=== PATIENT | male | born 1980 | race Hispanic/Latino ===

== ENCOUNTER 2024-03-05 08:13 | Emergency (ER) | payer OTHER, SELFPAY ==
[2024-03-05 08:13] VITALS: BMI 29.4
[2024-03-05 08:20] VITALS: BP 151/105
[2024-03-05 08:35] VITALS: BP 145/79
--- NOTE | 2024-03-05 08:56 | ED.GENMED ---
History of Present Illness
General
Chief Complaint: Chest Pain
Source: patient and family
Time Seen by Provider: 03/05/24 08:42
Travel History
Have you had any contact with someone who has COVID-19?: No
Do you have any symptoms of coronavirus? Fever > 100 degrees, chills, cough, shortness of breath, sore throat, loss of taste or smell, muscle aches, or headache?: No
History of Present Illness
History of Present Illness:
This patient is a 43-year-old male who admits to drinking alcohol last night. He woke up this morning felt 'hung over' described as a little shaky, associated with discomfort in the left anterior chest 'every time I breathe'. He got ready for
work, and as he was in the car with his daughter who was driving he started to feel very lightheaded, and seeing 'dots' like he might pass out. He therefore elected to come the emergency department. He feels much better now and no longer feels
lightheaded but still feels a little shaky and still has discomfort with deep breath. He denies recent immobilization, recent trauma, leg swelling, fever, chills, cough, sore throat, rhinorrhea, abdominal pain, numbness, tingling, focal weakness,
or other complaints. Patient denies family history of early cardiac illness. Patient denies personal or family history of clotting disorder.
Past History
Past History
ED Past Medical History: Asthma
ED Past Surgical History: None
Social History
Tobacco: Non-smoker
Alcohol: Occasional
Drug: None
Personal:
Living: with family
Employment: Employed
Phy Exam
Physical Exam
Physical Exam:
GENERAL: Alert , in no apparent distress but appears anxious
EYE: pupils equal and reactive
NECK: Supple, no significant adenopathy.
ENT: o/p clr, mm slightly dry
CARDIAC: Regular rate and rhythm .
LUNGS: Clear breath sounds bilaterally, no acute respiratory distress, no wheezes/rales/rhonchi
ABDOMEN: Soft, without focal tenderness, no r/g, no cvat
NEUROLOGICAL: Alert and oriented, no focal neuro deficits
SKIN: Warm and dry, skin intact.
MUSCULOSKELETAL: No edema, well perfused.
PSYCH: Normal and appropriate interaction but anxious.
Scores
PERC Rule Criteria
Age <50 years: Yes
HR <100 bpm: Yes
Room air oxygen sat >94%: Yes
History of DVT or PE: No
Recent trauma or surgery: No
Hemoptysis: No
Exogenous estrogen: No
Clinical signs suggestive of DVT: No
: No
Considered low risk for PE: Yes
PERC Score: 0
PE can be excluded by PERC: Yes
Course
Orders/Labs/Results
Orders:
Orders
03/05/24 08:14
Electrocardiogram (*1) Urgent
Reason for Study: Shortness of Breath
EKG- Treatment ONCE
03/05/24 08:56
Cardiac Monitoring- Treatment ONCE
0.9% Sodium Chloride 1000 ml [Nss] 1,000 ml IV BOLUS
CR Chest - 2 Views Urgent
Comment:
Reason For Exam: cp
03/05/24 09:15
Complete Blood Count/No Diff Urgent
Comprehensive Metabolic Panel Urgent
Troponin I Urgent
Abnormal Lab Results
03/05/24
09:15
WBC 4.5 L 10^3/uL
(4.8-10.8)
03/05/24 09:15
03/05/24 09:15
Vital Signs
Initial and Last Documented VS:
Initial Vital Signs
Temp Pulse Resp BP Pulse Ox
98.1 F 86 18 151/105 100
03/05/24 08:20 03/05/24 08:20 03/05/24 08:20 03/05/24 08:20 03/05/24 08:20
Last Documented Vital Signs
Temp Pulse Resp BP Pulse Ox
98.1 F 77 10 158/88 99
03/05/24 08:20 03/05/24 10:00 03/05/24 10:00 03/05/24 10:00 03/05/24 10:00
Update Note
Update Note:
Patient presents to the Emergency Department with __chest discomfort, lightheadedness, shakiness
Number and Complexity of Problems Addressed at the Encounter
� Chronic conditions affecting care:
� Acute Exacerbation and/or Progression of Chronic Illness:
� Differential Diagnosis includes: But not limited to dehydration, anxiety, ACS, PE, pneumothorax, etc.
Amount and/or Complexity of Data to be Reviewed and Analyzed
� I performed an independent evaluation of and my interpretation is:
EKG: Read by me, normal sinus rhythm, normal rate, no acute ischemia
CT:
Xrays:read by me (and rads) nad
Laboratory Studies:unremarkable
Other:
� Review of other/old records reveals:
� Clinical information was obtained by an independent historian: Daughter who is bedside
� Prescriptions/Medications Considered but not given:
� Further testing considered but not performed: Patient does not need a D-dimer or further workup for PE given that is PE RC score is negative.
Risk of Complications and/or Morbidity or Mortality of Patient Management
� Social determinants of health affecting care:
� Discussion with other providers (PCP, Hospitalists, Consultants, etc):
� Escalation of care including admission/observation vs risk of discharge considered: 10:23 AM patient feels much better, no complaints, vital stable. Will complete IV fluid infusion and discharge. Toradol administered for
likely musculoskeletal related discomfort.
ED Attending Note
-
Portions of this chart may have been created with voice recognition software.� Occasional wrong word or��sound alike� substitutions may have occurred due to the inherent limitations of voice recognition software.
Discharge Plan
Departure
Patient Disposition: Home (Routine Discharge)
Date of Disposition: 03/05/24
Time of Disposition: 10:23
Patient with high blood pressure during this ER visit?: Yes
Condition: Good
Discharge Problem:
Near syncope
Instructions: Near Fainting (DC), Chest Pain PCP Follow Up, BLOOD PRESSURE
Referrals:
Mary Kent CRNP [Family Provider] - Follow up in 2-3 days
Activity Restrictions/Additional Instructions:
IF YOU DEVELOP SEVERE HEADACHE, SHORTNESS OF BREATH, ABDOMINAL PAIN, VOMITING, TROUBLE BREATHING, WORSENING OR NEW CHEST PAIN, OR OTHER WORRISOME SIGNS, PLEASE RETURN TO THE ER IMMEDIATELY
Interventions
Interventions:
*Risk Screen - Suicide Last Done: 03/05/24 08:20
*General Assessment Last Done: 03/05/24 08:20
*Neglect/Abuse Screening Last Done: 03/05/24 08:20
ED- Cardiac Assessment Last Done: 03/05/24 10:12
Discharge Date and Time
Print Language: WOLOF
[2024-03-05 09:00] VITALS: BP 137/81
[2024-03-05] MEDS: NSS 1000 IV (09:17)
[2024-03-05 09:32] LABS: Hematocrit 43.7 % (39.0-52.0); Hemoglobin 15.1 g/dL (13.0-18.0); Mean Corp Hgb Conc. 34.6 g/dL (33.0-37.0); Mean Corpuscular Hgb 28.8 pg (27.0-31.0); Mean Corpuscular Volume 83.4 fL (80.0-94.0); Mean Platelet Volume 10.3 fL (7.4-10.4); Platelet Count 190 10^3/uL (130-400); Red Blood Cell Count 5.24 10^6/uL (4.70-6.10); Red Cell Dist. Width 13.4 % (11.5-14.5); White Blood Cell Count 4.5 10^3/uL (4.8-10.8)
[2024-03-05 09:46] LABS: ALT (SGPT) 16 U/L (0-50); AST (SGOT) 20 U/L (17-59); Albumin 4.6 g/dl (3.5-5.0); Alkaline Phosphatase 100 U/L (38-126); Blood Urea Nitrogen 17 mg/dl (9-20); Calcium 9.3 mg/dl (8.4-10.2); Carbon Dioxide 25 mmol/L (22-30); Chloride 105 mmol/L (98-107); Estimated Creatinine Clearance > 125 ml/min; Glucose 94 mg/dl (70-99); Potassium 3.9 mmol/L (3.5-5.1); Sodium 140 mmol/L (135-145); Total Bilirubin 0.4 mg/dl (0.2-1.3); Total Protein 7.5 g/dl (6.3-8.2); eGFR > 60.00
[2024-03-05 09:57] LABS: Troponin I < 0.012 ng/ml
[2024-03-05 10:00] VITALS: BP 158/88
[2024-03-05] MEDS: TORADOL 15 MG IV (10:58)
== END 2024-03-05 11:10 | disposition home or self-care (01) ==
LOC: EMR 08:13
PROVIDERS: EMERGENCY PHYSICIAN Emergency Medicine; FAMILY PHYSICIAN Nurse Practitioner Adult Health
DX: R07.89 Other chest pain (principal)
CPT/HCPCS: 99283; 96374; 96361; 71046; 80053; 84484; 85027; 93005

== ENCOUNTER 2024-03-21 11:08 | Emergency (ER) | payer OTHER, SELFPAY ==
[2024-03-21] VITALS (9 sets, daily range): BP systolic 119–133; BP diastolic 55–83; PULSE 62–84; BMI 31.1
[2024-03-21 11:28] LABS: % Eosinophils 7.3 % (0-6); % Immature Granulocytes 0.2 % (0-0.5); % Lymphocytes 37.9 % (20.5-51.1); % Monocytes 6.3 % (1.7-9.3); % Neutrophils 47.3 % (42.2-75.2); Absolute Eosinophils 0.3 10^3/uL (0-0.7); Absolute Lymphocytes 1.6 10^3/uL (1.2-3.4); Absolute Monocytes 0.3 10^3/uL (0.1-0.6); Hematocrit 39.4 % (39.0-52.0); Hemoglobin 14.1 g/dL (13.0-18.0); Mean Corp Hgb Conc. 35.8 g/dL (33.0-37.0); Mean Corpuscular Hgb 29.4 pg (27.0-31.0); Mean Corpuscular Volume 82.3 fL (80.0-94.0); Mean Platelet Volume 10.8 fL (7.4-10.4); Nucleated Red Blood Cells % 0 % (-); Platelet Count 194 10^3/uL (130-400); Red Blood Cell Count 4.79 10^6/uL (4.70-6.10); Red Cell Dist. Width 13.3 % (11.5-14.5); White Blood Cell Count 4.1 10^3/uL (4.8-10.8)
[2024-03-21 11:48] LABS: ALT (SGPT) 16 U/L (0-50); AST (SGOT) 22 U/L (17-59); Albumin 4.7 g/dl (3.5-5.0); Alkaline Phosphatase 87 U/L (38-126); Blood Urea Nitrogen 16 mg/dl (9-20); Calcium 9.5 mg/dl (8.4-10.2); Carbon Dioxide 20 mmol/L (22-30); Chloride 104 mmol/L (98-107); Estimated Creatinine Clearance > 125 ml/min; Glucose 110 mg/dl (70-99); Sodium 134 mmol/L (135-145); Total Bilirubin 0.7 mg/dl (0.2-1.3); Total Protein 7.5 g/dl (6.3-8.2); eGFR > 60.00
--- NOTE | 2024-03-21 12:08 | ED.GENMED ---
History of Present Illness
<Dion Cameron PA-C - Last Filed: 03/21/24 15:17>
General
Chief Complaint: Fainting Sensation
Source: patient
Exam Limitations: none
Time Seen by Provider: 03/21/24 11:46
History of Present Illness
History of Present Illness:
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 He developed lightheaded sensation. No chest pain.
No palpitations. He tries to stay hydrated throughout the day. No fevers. No other complaints at this time
Past History
<JUSTIN Duque Last Filed: 03/21/24 15:17>
Past History
ED Past Medical History: Asthma
ED Past Surgical History: None
Social History
Tobacco: Non-smoker
Alcohol: Occasional
Drug: None
Personal:
Living: with family
Employment: Employed
Phy Exam
<JUSTIN Duque Last Filed: 03/21/24 15:17>
Physical Exam
Physical Exam:
General: Well-appearing male no acute respiratory distress
HEENT: Normocephalic atraumatic
Heart: Regular rate and rhythm no murmurs
Lungs: Clear no wheeze or rales
Abdomen soft nontender nondistended no guarding or rebound normal bowel sounds
Extremities: No cyanosis
Course
<JUSTIN Duque Last Filed: 03/21/24 15:17>
Orders/Labs/Results
Orders:
Orders
03/21/24 11:20
Electrocardiogram (*1) Urgent
Reason for Study: Syncope
EKG- Treatment ONCE
CMP [Comprehensive Metabolic Panel] Urgent
Complete Blood Count/With Diff Urgent
Lyme Progressive Urgent
Comment: LYME PROGRESSIVE ADDED ON BY FLOOR 2:40PM 03-21-24
03/21/24 12:07
Orthostatic VS- Treatment ONCE
0.9% Sodium Chloride 1000 ml [Nss] 1,000 ml IV BOLUS
03/21/24 12:18
COVID-19 Antigen Urgent
Source: Nasal Swab
03/21/24 14:16
Ketorolac [Toradol] 30 mg IV NOW STA
03/21/24 14:38
Add On- LAB Urgent
Tests Added?: lyme progressive
03/21/24 15:18
Troponin I Urgent
Abnormal Lab Results
03/21/24
11:20
WBC 4.1 L 10^3/uL
(4.8-10.8)
MPV 10.8 H fL
(7.4-10.4)
Eosinophils % 7.3 H %
(0-6)
Sodium 134 L mmol/L
(135-145)
Carbon Dioxide 20 L mmol/L
(22-30)
Glucose 110 H mg/dl
(70-99)
03/21/24 11:20
03/21/24 11:20
Vital Signs
Initial and Last Documented VS:
Initial Vital Signs
Temp Pulse Resp BP Pulse Ox
97.8 F 68 12 129/77 99
03/21/24 11:12 03/21/24 11:12 03/21/24 11:12 03/21/24 11:12 03/21/24 11:12
Last Documented Vital Signs
Temp Pulse Resp BP Pulse Ox
97.8 F 71 16 133/73 97
03/21/24 11:12 03/21/24 15:45 03/21/24 15:00 03/21/24 15:00 03/21/24 15:45
<Tiffanyerasto Gamez, ELECTRONICS SUPERVISOR - Last Filed: 03/21/24 17:07>
Orders/Labs/Results
Orders:
Orders
03/21/24 11:20
Electrocardiogram (*1) Urgent
Reason for Study: Syncope
EKG- Treatment ONCE
CMP [Comprehensive Metabolic Panel] Urgent
Complete Blood Count/With Diff Urgent
Lyme Progressive Urgent
Comment: LYME PROGRESSIVE ADDED ON BY FLOOR 2:40PM 03-21-24
03/21/24 12:07
Orthostatic VS- Treatment ONCE
0.9% Sodium Chloride 1000 ml [Nss] 1,000 ml IV BOLUS
03/21/24 12:18
COVID-19 Antigen Urgent
Source: Nasal Swab
03/21/24 14:16
Ketorolac [Toradol] 30 mg IV NOW STA
03/21/24 14:38
Add On- LAB Urgent
Tests Added?: lyme progressive
03/21/24 15:18
Troponin I Urgent
Abnormal Lab Results
03/21/24
11:20
WBC 4.1 L 10^3/uL
(4.8-10.8)
MPV 10.8 H fL
(7.4-10.4)
Eosinophils % 7.3 H %
(0-6)
Sodium 134 L mmol/L
(135-145)
Carbon Dioxide 20 L mmol/L
(22-30)
Glucose 110 H mg/dl
(70-99)
03/21/24 11:20
03/21/24 11:20
Vital Signs
Initial and Last Documented VS:
Initial Vital Signs
Temp Pulse Resp BP Pulse Ox
97.8 F 68 12 129/77 99
03/21/24 11:12 03/21/24 11:12 03/21/24 11:12 03/21/24 11:12 03/21/24 11:12
Last Documented Vital Signs
Temp Pulse Resp BP Pulse Ox
97.8 F 71 16 133/73 97
03/21/24 11:12 03/21/24 15:45 03/21/24 15:00 03/21/24 15:00 03/21/24 15:45
<Dion Cameron PA-C - Last Filed: 03/21/24 15:17>
MDM/Problems Addressed
Differential Diagnosis Includes:
Lightheaded sensation. He was here 2 weeks ago for the same. EKG shows sinus rhythm without ischemic changes. Will check labs. Orthostatic vital signs pending.
<Tiffany Gamez, ELECTRONICS SUPERVISOR - Last Filed: 03/21/24 17:07>
MDM/Problems Addressed
MDM/Problems Addressed:
4:45 p.m.
Troponin normal.
Pt OOB and ambulating well, states he feels much better
Lyme titer pending
Stable for discharge, ambulated out with normal gait.
<Tiffany Gamez ELECTRONICS SUPERVISOR - Last Filed: 03/21/24 17:07>
*Critical Care Note
Total Time (30-74mins, 75-104mins- exclusive of procedures): Not Applicable
<Dion Cameron PA-C - Last Filed: 03/21/24 15:17>
Update Note
Update Note:
Patient feeling better after fluids. Slightly tachycardic upon standing with orthostatic vital signs. Troponin is pending. If negative anticipate discharge home but will recommend follow-up with cardiology recurrent near syncope and palpitations.
ED Attending Note
<Dion Cameron PA-C - Last Filed: 03/21/24 15:17>
-
Portions of this chart may have been created with voice recognition software.� Occasional wrong word or��sound alike� substitutions may have occurred due to the inherent limitations of voice recognition software.
Discharge Plan
Departure
Instructions: Near Fainting (DC)
Referrals:
Mary Kent CRNP [Family Provider] -
Nancy Fernandes MD [Active] -
Activity Restrictions/Additional Instructions:
Rest. Drink plenty of fluids. Please return here for worsening symptoms otherwise follow-up with cardiology
Interventions
Interventions:
*Risk Screen - Suicide Last Done: 03/21/24 11:19
*General Assessment Last Done: 03/21/24 11:19
*Neglect/Abuse Screening Last Done: 03/21/24 11:19
ED- Fall Risk Assessment Last Done: 03/21/24 11:53
*ED COVID-19 Vaccine History Last Done: 03/21/24 11:19
ED- Cardiac Assessment Last Done: 03/21/24 11:53
ED- Neurological Assessment Last Done: 03/21/24 11:53
Discharge Date and Time
Print Language: GRENADIAN
[2024-03-21] MEDS: NSS 1000 IV (12:22)
[2024-03-21 12:58] LABS: COVID-19 Antigen Negative (Negative)
[2024-03-21 15:50] LABS: Troponin I < 0.012 ng/ml
[2024-03-22 15:51] LABS: Lyme Antibody Screen, EIA Negative (Negative)
== END 2024-03-21 17:45 | disposition home or self-care (01) ==
LOC: EMR 11:08
PROVIDERS: Physician Assistant; EMERGENCY PHYSICIAN Emergency Medicine; FAMILY PHYSICIAN Nurse Practitioner Adult Health
DX: R55 Syncope and collapse (principal); J45.909 Unspecified asthma, uncomplicated
CPT/HCPCS: 99283; 96374; 96361; 80053; 84484; 85025; 86618; 87811; 93005